=== PATIENT | male | born 1950 | race Asian ===

== ENCOUNTER 2021-11-07 10:20 | Emergency (ER) | payer MEDICARE, MEDICAID ==
[~2021-11-07] VITALS: Ht 167.6 cm; Wt 70.3 kg
[2021-11-07 10:27] VITALS: BP_SYST 148
--- NOTE | 2021-11-07 10:31 | NUR ---
Placed in room 2 . Placed on cardiac nurse, blood pressure machine and pulse oximeter. To gown for exam. Side rails up. Report given to DEREK HUFFMAN.
--- NOTE | 2021-11-07 11:10 | NUR ---
MD ARREAGA AT BEDSIDE FOR ASSESS.
[2021-11-07] MEDS ORDERED: KETOROLAC TROMETHAMINE 60 MG/2 ML VIAL IM ONE (12:45)
[2021-11-07] MEDS ORDERED: TRAM50TA PO (14:22)
[2021-11-07 15:07] VITALS: BP_SYST 138
--- NOTE | 2021-11-07 15:07 | NUR ---
Patient given written and verbal discharge instructions and verbalizes understanding. ER MD discussed with patient the results and treatment provided. Patient in stable condition. ID arm band removed. IV catheter removed intact and dressing applied, no active bleeding. Rx of NAPROXEN given. Patient educated on pain management and to follow up with PMD. Pain Scale 2/10. Opportunity for questions provided and answered. Medication side effect fact sheet provided.
== END 2021-11-07 15:07 | disposition home or self-care (01) ==
LOC: SED 10:20
DX: M25.552 Pain in left hip (principal); Z79.899 Other long term (current) drug therapy
CPT/HCPCS: 99285; 73502; 96372; J1885